=== PATIENT | female | born 1985 | race Caucasian/White ===

== ENCOUNTER → 2018-05-26 11:00 | Outpatient (CLI) | payer OTHER, SELFPAY ==
[2018-05-26 12:30] LABS: Anion Gap 13 (5-15); BUN 9 mg/dL (7-18); Calcium,Total 8.6 mg/dL (8.5-10.1); Chloride 107 mmol/L (98-107); Cholesterol 200 mg/dL (200); Creatinine, Serum 0.75 mg/dL (0.55-1.02); EST Glomerular Filtration Rate 95 mL/min (>60); Est Glom Filt Rate - Afr Amer 115 mL/min (>60); Glucose 73 mg/dL (74-106); High Density Lipoprotein 52 mg/dL; Potassium 4.2 mmol/L (3.5-5.1); Sodium Level 142 mmol/L (136-145); Thyroid Stim Hormone (TSH) 1.56 uIU/mL (0.358-3.74); Triglycerides 99 mg/dL; Very Low Density Lipoprotein 20 mg/dL (5-40)
== END ==
PROVIDERS: Family Provider Family Medicine; PCP Family Medicine; Visit Provider Family Medicine
DX: E66.9 Obesity, unspecified (principal)
CPT/HCPCS: 36415; 80048; 80061; 84443

== ENCOUNTER → 2018-12-11 14:33 | Outpatient (CLI) | payer OTHER, SELFPAY ==
--- NOTE | 2018-12-11 14:38 | RAD_ITS ---
STUDY: X-RAY - LEFT FOOT CLINICAL: Female, 33 years old. Swelling and pain. Foreign body. TECHNIQUE: 3 view(s) of the foot. COMPARISON: None. FINDINGS: There is a linear foreign body in the dorsal soft tissues, approximately 1 cm greatest dimension located dorsal to the third and fourth metatarsals. There is adjacent soft tissue swelling. Normal talus, calcaneus, and tarsal bones. Normal visualized subtalar, talonavicular, calcaneocuboid, tarsal and tarsometatarsal articulations. Normal metatarsi. Normal metatarsophalangeal joint of the great toe. Normal tibial and fibular sesamoid bones. Normal interphalangeal joint of the great toe. Normal phalanges of the great toe. Normal second through fifth metatarsophalangeal joints. Normal interphalangeal joints and phalanges of the lesser toes. RAD/Foot min 3 Views IMPRESSION: No fractures or dislocation. 1 cm linear foreign body in the dorsal soft tissues of the forefoot. Electronically Signed: Kris Owusu MD at 15:30 EDT , Service support ,
== END ==
PROVIDERS: Family Provider Family Medicine; PCP Family Medicine; Referring Provider Family Medicine; Visit Provider Family Medicine
DX: S90.852A Superficial foreign body, left foot, initial encounter (principal); X58.XXXA Exposure to other specified factors, initial encounter; Y93.9 Activity, unspecified; Y92.9 Unspecified place or not applicable; Y99.9 Unspecified external cause status
CPT/HCPCS: 73630

== ENCOUNTER → 2019-01-12 08:27 | Outpatient (CLI) | payer OTHER, SELFPAY ==
[2019-01-12 10:07] LABS: Absolute Lymphocyte Count 2.83 X10^3/ul (0.83-4.51); Absolute Neutrophil Count 6.2 X10^3/uL (2.0-7.7); Basophil# 0.01 X10^3/uL; Basophil% 0.1 % (0-1); Eosinophil# 0.11 X10^3/uL; Eosinophils% 1.1 % (0-5); Hematocrit 39.8 % (37-47); Hemoglobin 12.8 g/dl (12.0-15.0); Lymphocyte # 2.83 X10^3/ul (4.0); Mean Corp Hgb Conc 32.2 g/gl (32-36); Mean Corpuscular Hgb 28.5 pg (27.0-32.0); Mean Corpuscular Volume 88.6 fL (81-99); Mean Platelet Vol. 11.5 fl (6.2-12.0); Monocyte# 0.56 X10^3/uL; Monocyte% 5.7 % (0-10); Neutrophil # 6.21 X10^3/uL (2.7-7.7); Neutrophil % 63.8 % (47-70); Platelet Count 324 K/mm3 (150-450); RBC Distribution Width CV 13.2 % (11.6-14.6); RBC Distribution Width SD 42.5 fl (35.1-43.9); Red Blood Count 4.49 M/mm3 (4.2-5.4); White Blood Count 9.8 K/mm3 (4.4-11.0)
[2019-01-12 10:10] LABS: POSITIVE COUNT NO; POSITIVE DIFFERENTIAL NO; POSITIVE MORPHOLOGY NO
[2019-01-12 10:16] LABS: Internal QC Validated? YES +Cl - CLEAR BKGD; Pregnancy, Urine Negative Negative
[2019-01-12 10:46] LABS: AST(SGOT) 15 U/L (15-37); Alanine Aminotransfer ALT/SGPT 10 U/L (13-56); Albumin, Serum 3.6 g/dL (3.2-5.0); Alkaline Phosphatase 66 U/L (45-117); Anion Gap 6 (5-15); BUN 9 mg/dL (7-18); BUN/Creat Ratio 12.5 RATIO (10-20); Calcium,Total 8.6 mg/dL (8.5-10.1); Chloride 107 mmol/L (98-107); Creatinine, Serum 0.72 mg/dL (0.55-1.02); EST Glomerular Filtration Rate 99 mL/min (>60); Est Glom Filt Rate - Afr Amer 120 mL/min (>60); Globulin 3.5 g/dL (2.2-4.2); Glucose 75 mg/dL (74-106); Potassium 4.3 mmol/L (3.5-5.1); Protein, Total 7.1 g/dL (6.4-8.2); Sodium Level 139 mmol/L (136-145)
== END ==
PROVIDERS: Family Provider Family Medicine; PCP Family Medicine; Referring Provider Family Medicine; Visit Provider Family Medicine
DX: Z01.818 Encounter for other preprocedural examination (principal)
CPT/HCPCS: 36415; 80053; 81025; 85025

== ENCOUNTER 2019-01-26 09:33 | Day surgery (SDC) | payer OTHER, SELFPAY ==
[2019-01-26] VITALS (8 sets, daily range): BP systolic 134–149; BP diastolic 79–103; PULSE 69–91; RESP 16; TEMP 36.3–36.8; O2SAT 96–98; BMI 44.6
[2019-01-26 09:58] LABS: Internal QC Validated? YES +Cl - CLEAR BKGD
[2019-01-26 10:01] LABS: Pregnancy, Urine Negative Negative
--- NOTE | 2019-01-26 11:15 | FORE_PTH ---
PATIENT: NICOLAS HICKMAN [place] [facility] [id number] AGE/SX: 33/F ROOM: RE01/26/[address]: Dr. Maryanne Guerrero DPM : 1985 BED: DIS: 01/26/2019 SPEC #: [id number] RECD: 01/29/19 07:15 STATUS: ILDA SURESH #: [id number] KITTY: 01/26/19 11:[address]: Maryanne Guerrero DEPT: SURGICAL PATHOLOGY RECD BY: Reta Alonzo ENTERED: 01/29/19 10:38 SP TYPE: FOREIGN B ARI DR: Dr. Ruben Morrow MD Tissues: FOREIGN BODY Procedures: Surgery Specimen Level I HEADER OPERATION: Removal foreign body, foot PRE-OP DIAGNOSIS: Foreign body, left foot TISSUE SUBMITTED: Foreign body - left foot GROSS DIAGNOSIS A piece of foreign body. SJ:forrest 01/29/19 MICROSCOPIC DESCRIPTION Slides are reviewed. GROSS DESCRIPTION Received in fixative is one container labeled with the patient's name and designated foreign body left foot. The specimen consists of a clear fragment of what appears to be glass measuring 1 cm in length and 0.1 cm in diameter. The specimen is for gross identification only. / SJ:forrest 01/29/19 CPT: 08104
--- NOTE | 2019-01-26 11:30 | RAD_ITS ---
STUDY: X-RAY - LEFT FOOT CLINICAL: Foreign body removal. TECHNIQUE: 4 interoperative view(s) of the foot. COMPARISON: Radiographs 12/11/2018. FINDINGS: Status post interval removal of the foreign body dorsal to the proximal metatarsals. Electronically Signed: Misha Lucas MD at 13:37 EDT Tel , Service support , RAD/Foot min 3 Views
[2019-01-26] MEDS: Cefazolin 2 GM in 0.9% Normal Saline 100 ML IV (11:33)
[2019-01-26] MEDS: Bupivacaine Mpf 0.5% 30 ML VIAL (11:56)
--- NOTE | 2019-01-26 12:11 | DCINST_ITS ---
Discharge Activity: May not drive while taking narcotic pain medications. Weight Bearing Status: Full weight bearing - as tolerated with left surgical shoe Keep extremity elevated above heart level: Left Leg Call your doctor if your incision/area has: Continuous Slow Oozing, Sudden Incr eased Bleeding, Increased Pain/ Swelling, Increased Redness, Foul Smelling Discharge, Swelling at the incision site Call your doctor if you observe: Fever of 101 or Higher, Calf discomfort, Uncontrolled pain Cleanse incision/area with: Keep Dressing Clean & Dry Allergies/Adverse Reactions: Allergies latex Allergy (Verified 01/19/19 09:10) Rash Medications to take at Discharge Bupropion HCl [Wellbutrin Sr] 250 mg PO DAILY 01/19/19 Norgestimate-Ethinyl Estradiol [Sprintec 28 Day Tablet] 1 each PO DAILY 01/19/19 Vortioxetine Hydrobromide [Trintellix] 10 mg PO DAILY 01/19/19 Primary Care Physician: Ruben Morrow MD [Primary Care Provider] - Test Results: Test results from this visit will be discussed in further detail at your follow- up appointment, if applicable. Please Follow Up With: Maryanne Guerrero DPM When: one week [facility]. call [phone] if questions/concerns Proposed Discharge Date: 01/26/19
--- NOTE | 2019-01-26 12:11 | PCM.OPRPT ---
Problem List (1) Foreign body in left foot Status: Chronic (2) Left foot pain Status: Chronic Report of Operation Date of Procedure: 01/26/19 Pre-Operative Diagnosis: foreign body, left foot Post-Operative Diagnosis: foreign body, left foot Surgery/Procedure Performed:: foreign body removal, left foot Description of Surgical Findings:: Hemostasis: Well-padded pneumatic ankle tourniquet, left set at 250 mmHg for 5 minutes Materials: 3-0 Vicryl and 4-0 Monocryl Complications: None Findings: No necrosis or infection. A sliver of glass measuring approximately 1.3 cm in length The patient tolerated the procedure and anesthesia well. She was transported to the PACU vital signs stable vascular status intact to the left lower extremity. She was advised to ice and elevate. Radiographic confirmation of removed foreign body was confirmed prior to the patient leaving the operating room. She was advised to full weight-bear as tolerated to the left lower extremity with a surgical shoe. She will be discharged home upon continued stability. All her postoperative orders were entered electronically. gravity prospecting observer helper: none - Surgeon: Maryanne Guerrero DPM. Public Works Commissioner: Royal Crabtree PGY2 Type of Anesthesia:: Local MAC - Preoperative: One-to-one mix of 1% lidocaine plain and 0.5% Marcaine plain administered in dorsal intermediate cutaneous nerve ablation proximal to the presumed foreign body site (10 cc) Postoperative: One-to-one mix of 1% lidocaine plain and 0.5% Marcaine plain administered in a local infiltrated manner to that removed foreign body site (3cc) Specimen's removed: glass sliver, left foot Estimated Blood Loss (mL): < 50 mL Description of Procedure: Indications: This 33-year-old female with significant past medical history of depression sustained a foreign body to the left plantar foot in 2013. She has had at least two in-office surgical removal attempts at other various facilities without full removal. Her foot is painful with ambulation during daily activities and work requirements. She does walk and stand most of the time while at work. She denies current redness or infection. Radiographically there appears to be a radial dense foreign body sliver dorsal to the third and fourth metatarsal diaphysis area. There is no soft tissue emphysema, acute fracture dislocation, or additional foreign body sites visualized. Clinically, there is a palpable painful area to the dorsal lateral foot without local signs of infection. The compartments remain soft and there is no redness or drainage. Her preoperative history and physical exam performed by her primary care physician, Dr. Gee was reviewed. Her preoperative laboratory data including CBC, CMP, and urine that was negative was reviewed without gross abnormalities. The indications, planned procedure, possible benefits, risks, complications, anticipated healing time and management were discussed in detail with the patient. She understands risks and complications may include the following but are not limited to this list: Infection, swelling, scarring, continued pain, delayed or nonhealing, failure to retrieve the foreign body, complex pain syndrome, blood clot, allergic reaction, loss of limb, function, life, numbness. No guarantees were made. She elects to proceed forward at this time. The informed surgical consent and limb were signed. I answered all of her questions. Procedure in detail: The patient was transferred to the operating room via cart and placed on the operating room table in the supine position. Final verification of the patient, surgery, limb designation was performed via the timeout procedure. MAC anesthesia was initiated by the anesthesia team. Local anesthetic was administered by the podiatry team. Preoperative antibiotic was administered by the anesthesia team as ordered. The left lower extremity had an ankle tourniquet that was placed in a well-padded manner. The left lower extremity was prepped and draped in the usual aseptic manner and surgery began as the following: Attention was first directed to the dorsal lateral left foot in which intraoperative fluoroscopy was used to identify the location of foreign body. There is a radiodense sliver identified near the third and fourth metatarsals dorsally and this corresponds with her clinical pain on palpation site. Boomer exsanguination was performed and the tourniquet was inflated at this time. A 1-1/2 cm curvilinear incision was made through the skin. Blunt dissection was performed. Care was taken to identify, protect, and retract all neurovascular structures at this point and throughout the remainder of surgery. The deeper subcutaneous tissue was entered and the foreign body was both palpated and visualized at this time it was removed in total. It appears to be a sliver of glass measuring approximately 1.3 cm in length with a width of approximately 3 mm. This did not seem to communicate with the deep compartments of the foot or bone at this time. There is no necrosis, infection, or odor noted. Copious saline irrigation was performed. Intraoperative fluoroscopy including three x-ray foot views were used to confirm for removal of the previously identified foreign body. The tourniquet was deflated at this time and brisk capillary refill time was noted to all digits of the left foot. No pulsatile bleeding was utilized. Pressure was applied to maintain hemostasis. Minimal deep closure was performed utilizing 3-0 Vicryl. The skin was reapproximated using subcuticular technique with 4-0 Monocryl. The postoperative injection was administered as noted. Steri-Strips were applied. A dressing of Betadine soaked Adaptic, gauze, Kerlix, [place] wrap were applied. After procedure: The patient tolerated the procedure and anesthesia well. She was transported to PACU with vital signs stable and vascular status intact to left lower extremity. She was advised to ice and elevate for pain and inflammation management. She was provided with a [place] prescription for potential postoperative pain control if needed. She was advised on safe and proper use and to use this only as needed. She is permitted to place full weight on this foot in a surgical shoe. To keep the dressing clean, dry, and intact until follow-up visit at the [facility] next week. All postoperative orders were entered electronically. It is noted the sliver of glass was sent to pathology. Maryanne Guerrero DPM, [facility] - Complications none - Admit VTE Documentation VTE Present on Admission: No VTE Mechan Device Prophylaxis: SCD's VTE Pharm Prophylaxis ordered?: No Reason prophylaxis not ordered:: Procedure Not Indicated
== END 2019-01-26 13:22 | disposition home or self-care (01) ==
LOC: SDC 09:34 → AC 09:38
PROVIDERS: Anesthesiology; Family Provider Family Medicine; PCP Family Medicine; Referring Provider Podiatrist; Visit Provider Podiatrist
PROC: (CPT 28192; principal; 2019-01-26 11:00)
DX: M79.5 Residual foreign body in soft tissue (principal); F32.9 Major depressive disorder, single episode, unspecified; F41.9 Anxiety disorder, unspecified; Z79.899 Other long term (current) drug therapy
CPT/HCPCS: 01470; 28192; 73630; 76000; 81025; 88300; J7120; J2405